=== PATIENT | male | born 1965 | race Caucasian/White ===

== ENCOUNTER 2018-09-04 09:24 | Emergency (ER) | payer BC ==
[2018-09-04 09:36] VITALS: BP 115/67
--- NOTE | 2018-09-04 09:53 | UC ---
Upper Extremity HPI - HPI Summary HPI Summary: fell on gym floor 4 eves ago, cut R elbow, did clean and dress wound and was doing well until last pm when elbow became red, swollen. Awoke in early am with fever, chills and increased swelling/redness/pain R elbow. feels a bit better after taking inbuprofen and Tylenol - History of Current Complaint Chief Complaint: UCUpperExtremity Stated Complaint: ELBOW INJURY Time Seen by Provider: 09/04/18 09:46 Hx Obtained From: Patient Onset/Duration: Sudden Onset Severity Initially: Moderate Severity Currently: Moderate Pain Intensity: 4 Location Of Pain: Is Discrete @ Character: Sharp, Stiffness Aggravating Factor(s): Movement, Other - pressure Alleviating Factor(s): Nothing Associated Signs And Symptoms: Positive: Swelling, Redness, Fever, Other - chills, draining - Allergies/Home Medications Allergies/Adverse Reactions: Allergies Allergy/AdvReac Type Severity Reaction Status Date / Time CLOROX Allergy ITCHINESS Uncoded 09/04/18 09:35 Home Medications: Home Medications ValACYclovir (*) [Valtrex 1 GM(*)] 1 gm PO DAILY 09/04/18 [History Confirmed ] PMH/Surg Hx/FS Hx/Imm Hx Previously Healthy: Yes - Surgical History Surgical History: Yes Surgery Procedure, Year, and Place: rt knee acl repair - [facility]. foreign body removed rt hand-AGE 14. 05/2014 SUBLUXED ELBOW REDUCED- [facility]- ER - Family History Known Family History: Positive: None Negative: Hypertension, Diabetes - Social History Occupation: Employed Full-time Lives: With Family Alcohol Use: Daily Alcohol Amount: 1 BEER PER DAY Substance Use Type: None Smoking Status (MU): Never Smoked Tobacco Review of Systems All Other Systems Reviewed And Are Negative: Yes Constitutional: Positive: Fever, Chills Skin: Negative: Rash Respiratory: Positive: Negative Cardiovascular: Positive: Negative Musculoskeletal: Positive: Decreased ROM - R elbow Neurological: Positive: Negative Psychological: Positive: Negative Physical Exam Triage Information Reviewed: Yes Appearance: Well-Appearing, No Pain Distress, Well-Nourished Vital Signs: Initial Vital Signs Temp 100.1 F 09/04/18 09:32 Pulse 69 09/04/18 09:32 Resp 18 09/04/18 09:32 BP 115/67 09/04/18 09:32 Pulse Ox 97 09/04/18 09:32 Vital Signs Reviewed: Yes Respiratory Exam: Normal Respiratory: Positive: Lungs clear Cardiovascular Exam: Normal Cardiovascular: Positive: RRR Musculoskeletal: Positive: Other: - R elbow swollen, fluctuant, redness, small PW with small amount serosanguinous drainage, demonstrates good ROM with pain on full ext Neurological Exam: Normal Psychological Exam: Normal Diagnostics - Radiology No standard instances Radiology Interpretation Completed By: Radiologist - No fracture, soft tissue swelling Upper Extremity Course/Dx - Course Course Of Treatment: case discussed with Dr. Reyna, he also examined patient in exam room spoke with Dr. Nguyen via phon et discuss case. She would like pt to receive Rocephin here, start augmentin and see her tomorrow at 8am in her office - Differential Dx/Diagnosis Differential Diagnosis/HQI/PQRI: Bursitis, Osteomyelitis, Other - soft tissue infection Provider Diagnosis: Cellulitis, Elbow contusion Discharge - Sign-Out/Discharge Documenting (check all that apply): Patient Departure All imaging exams completed and their final reports reviewed: Yes - Discharge Plan Condition: Stable Disposition: HOME Prescriptions: Amoxicillin/Clavulanate TAB* [Augmentin TAB 875*] 875 mg PO BID #20 tab Patient Education Materials: Cellulitis (ED) Referrals: Jana Nguyen MD [Medical Doctor] - (report to Dr. Nguyen's office at 8am tomorrow morning (09/05/18)) Alina Haddad MD [Primary Care Provider] - Additional Instructions: keep elbow clean and dry change bandage if soiled start augmentin antibiotic today Continue ibuprofen 600mg every 6 hours and Tylenol 650mg every 4-6 hours as needed for pain and fever report to Dr. Nguyen's office (orthopedic) tomorrow 09/05/18 at 8am to be seen by her [address] [place] [address] [place] [address] If at any time your fever or chills, swelling or pain increases you are to report to the Emergency room - Billing Disposition and Condition Condition: STABLE Disposition: Home
[2018-09-04] MEDS ORDERED: cefTRIAXone VIAL(*) 1,000 MG VIAL IM ONE (10:28)
[2018-09-04] MEDS ORDERED: Lidocaine 1%* 5 ML VIAL INJ ONE (10:29)
== END 2018-09-04 11:03 | disposition home or self-care (01) ==
LOC: UCEAST 09:24
DX: S50.01XA Contusion of right elbow, initial encounter (principal); L03.113 Cellulitis of right upper limb; Z91.048 Other nonmedicinal substance allergy status; W18.30XA Fall on same level, unspecified, initial encounter; Y92.39 Other specified sports and athletic area as the place of occurrence of the external cause
CPT/HCPCS: 96372; 99212; G0463; J0696

== ENCOUNTER 2018-09-05 09:51 | Inpatient (IN) | payer BC ==
[2018-09-05] MEDS ORDERED: Magnesium Hydroxide LIQ* 30 ML UDC PO PRN (10:22)
[2018-09-05] MEDS ORDERED: Polyethylene Glycol 3350* 17 GM PACKET PO PRN (10:22)
[2018-09-05] MEDS ORDERED: Ondansetron TAB* 4 MG PO PRN (10:22)
[2018-09-05] MEDS ORDERED: Morphine INJ* 2 MG/ML 1 ML SYRINGE (TWO MG - NEW SYRINGE VERSION) IV PRN (10:22)
[2018-09-05] MEDS ORDERED: oxyCODONE/Acetamin 5/325 MG* TAB PO PRN (10:22)
[2018-09-05] MEDS ORDERED: Ondansetron INJ* 2 MG/ML VIAL IV PRN (10:22)
[2018-09-05] MEDS ORDERED: Bisacodyl SUPP* 10 MG SUPP PR PRN (10:22)
[2018-09-05] MEDS ORDERED: diPHENhydraMINE IV* 50 MG/ML 1 ml VIAL (BENADRYL) IV PRN (10:22)
[2018-09-05] MEDS ORDERED: Piperacillin/Tazobac ADVAN(*) 3.375 GM in NS 0.9% 100 ML* 100 ML IVPB ONE (10:28)
--- NOTE | 2018-09-05 10:32 | HP ---
HISTORY AND PHYSICAL: DATE OF ADMISSION: 09/05/18 SURGEON: Jana Nguyen MD.* (DICTATED BY DELORES SERRANO) PRINCIPAL DIAGNOSIS: Infected right elbow olecranon bursitis. HISTORY OF PRESENT ILLNESS: Mr. Nieves is a 53-year-old gentleman who was playing [employer] back on 09/01/18 he dove to catch the frisbee and cut his right elbow. Two days later he woke up with chills, pain, and redness in the right elbow and went to [facility] yesterday on 09/04/18. He was started on Augmentin. He has taken 3 doses. He does report temperature of 100.1 this morning and continues to have pain, significant swelling, and redness of the right elbow. PAST MEDICAL HISTORY: Denies. PAST SURGICAL HISTORY: ACL repair. CURRENT MEDICATIONS: 1. Valacyclovir 2. Tylenol 3. Advil. 4. Augmentin ALLERGIES: No known drug allergies. FAMILY HISTORY: Coronary artery disease. SOCIAL HISTORY: A 53-year-old gentleman. He does not smoke. PHYSICAL EXAMINATION GENERAL: He is well developed, well nourished in no acute distress. VITAL SIGNS: He stands 6 feet tall. He is 185 pounds. Temp is 97.6 in the office. HEENT: Normocephalic, atraumatic. NECK: Supple. No palpable lymph nodes. PULMONARY: Lungs are clear to auscultation bilaterally. CARDIO: Regular rate and rhythm. Strong S1 and S2. ABDOMEN: Soft, nontender, nondistended. NEUROLOGIC: Alert and oriented x3. MUSCULOSKELETAL: Right upper extremity, there is an abrasion over the right elbow, no active drainage. There is significant erythema of the right elbow and surrounding soft tissue with significant swelling. He does have full extension and flexion of the right elbow and is able to supinate and pronate without pain. He has a 2+ distal radius pulse and intact sensation. ASSESSMENT AND PLAN: Mr. Nieves is a 53-year-old gentleman with an infected right elbow olecranon bursitis. We have sent him over from our office for a direct admission. We placed him on IV vanco and Zosyn. He will be kept n.p.o. after midnight. We will recheck the elbow in the morning if there is no significant improvement Dr. Nguyen will likely take him to the operating room for an I and D of the right elbow. DELORES SERRANO [id number]/[facility] #: [id number] [place]
--- OUTSIDE RECORDS SUMMARY | 2018-09-05 10:34 | XMS REPORT | Continuity of Care Document ---
:1965 External Reference #:[id number] Author Name Porfirio Moreau Care Team Providers Name Role Phone Franklin Rosales MD Primary Care Physician Unavailable Payers Date Identification Numbers Payment Provider Subscriber Policy Number: [id number] Leonel Katie Amari PayID: [id number] [address] [address] [place] [address] Advance Directives Description No Information Available Problems Date Description Provider Status Onset: 09/05/2018 Cellulitis of elbow Jana Nguyen M.D. Active Onset: 09/05/2018 Olecranon bursitis Jana Nguyen M.D. 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 ETOH Use Occasionally consumes alcohol Tobacco Use Start: Unknown Patient has never smoked Smoking Status Reviewed: 09/05/18 Patient has never smoked Exercise Type/Frequency Exercises rarely Allergies, Adverse Reactions, Alerts Description No Known Drug Allergies Medications Medication Date Status Form Strength Qnty SIG Indications Ordering Provider Tylenol Active Unknown 00 Advil Active Unknown 00 Flonase Active Unknown 00 Amoxicillin Active Tablets 500mg 1 by Unknown 00 mouth three times a day x 10 days Valacyclovir HCL Active Tablets 1gm 1 by Unknown 00 mouth every day Percocet Hx Unknown - 06/14/19 19 Naproxen Hx Unknown 06/14/19 19 Immunizations Description No Information Available Vital Signs Date Vital Result Comment 09/05/2018 9:08am Height 72 inches 6'0" Weight 185.00 lb Heart Rate 63 /min Body Temperature 97.6 F O2 % BldC Oximetry 93 % BMI (Body Mass Index) 25.1 kg/m2 06/26/2014 1:29pm Height 73 inches 6'1" Weight 195.00 lb Pain Level 0 BMI (Body Mass Index) 25.7 kg/m2 06/04/2014 10:00am Height 73 inches 6'1" Weight 195.00 lb Heart Rate 56 /min BP Systolic 108 mmHg BP Diastolic 65 mmHg BMI (Body Mass Index) 25.7 kg/m2 Results Description No Information Available Procedures Date Code Description Status 05/18/2017 92631910 Colonoscopy Completed 05/06/2015 33743 Repair Hernia Umbilical > 5 Yrs, Reducible Completed 06/04/2014 37113 [place] Closed Elbow Dislocation,W/O Anesthesia Completed 02/13/2010 30278 Short Arm Splint Application Completed Encounters Type Date Location Provider Dx Diagnosis Office Visit 02/13/2010 [facility], 813.82 FX Ulna (Alone) 3:15[facility] Unspec Part Closed Plan of Treatment 09/05/2018 - Jana Nguyen M.D.M25.521 Pain in right elbowFollow up:Follow up[place] [facility] [place] Ole[place]ranon [place], right [id number] Cellulitis of right upper limb
[2018-09-05] MEDS ORDERED: Vancomycin(*) 1,000 MG in NS 0.9% 250 ML* 250 ML IVPB SCH (11:00)
[2018-09-05] MEDS ORDERED: Zosyn per Pharmacy* NOTE FOLLOW UP SCH (11:00)
[2018-09-05] MEDS ORDERED: Lactated Ringers 1000 ML Bag* 1,000 ML IV SCH (11:00)
[2018-09-05] MEDS ORDERED: Vancomycin per Pharmacy* NOTE FOLLOW UP SCH (11:00)
[2018-09-05 11:11] LABS: ABS Basophils 0 10^3/ul (0-0.2); ABS Eosinophils 0.1 10^3/ul (0-0.6); ABS Lymphocytes 1.6 10^3/ul (1.0-4.8); ABS Monocytes 0.7 10^3/ul (0-0.8); ABS Neutrophils 5.6 10^3/ul (1.5-7.7); ABS Nucleated RBC 0 10^3/ul; Eosinophil % 1.1 %; Hematocrit 43 % (36-46); Hemoglobin 14.5 g/dL (14.0-18.0); Lymphocyte % 19.7 %; Mean Corpuscular HGB Conc 34 g/dL (31-36); Mean Corpuscular Hemoglobin 31 pg (27-31); Mean Corpuscular Volume 91 fL (80-94); Mean Platelet Volume 10.3 fL (7.4-10.4); Nucleated Red Blood Cells % 0.1; Platelet Count 125 10^3/uL (150-450); Red Blood Count 4.71 10^6 /uL (4.18-5.48); Red Cell Distribution Width 13 % (10.5-15)
[2018-09-05] MEDS ORDERED: Vancomycin 1500 MG IV - x ONCE IVPB ONE ×2 (12:30)
--- NOTE | 2018-09-05 14:02 | CONS ---
CONSULTATION REPORT: DATE OF CONSULT: 09/05/18 REQUESTING PHYSICIAN: Dr. Nguyen. CONSULTING SERVICE: Infectious Disease. REASON FOR CONSULT: Septic olecranon bursitis, right. IMPRESSION: 1. Right septic olecranon bursitis with cellulitis, usually gram positive. 2. He believes his tetanus status is up to date. RECOMMENDATIONS: Vancomycin goal trough 10-15. We will follow his arm and he will call his primary doctor's office to find out when his last tetanus shot was. HISTORY OF PRESENT ILLNESS: This is a 53-year-old man who was playing [employer] last week and fell on his right elbow, developed a small wound there at that time. It became red, swollen, he developed a fever. He went to urgent care. He was started on Augmentin yesterday after a dose of ceftriaxone. He has had no fevers since then and the redness is down a little bit. He saw Dr. Nguyen, who is concerned about the drainage, so had him come into the hospital. He does not have pain with range of motion of the elbow. He has some pain at rest, a little bit of bloody purulent drainage from time to time over the last day he thinks. He is not allergic to antibiotics. PAST MEDICAL HISTORY: 1. Finger infection, requiring incision and debridement. 2. Status post ACL repair. MEDICATIONS: 1. Tylenol. 2. Heparin subcutaneous injection. 3. Docusate. 4. Lactulose as needed. 5. Morphine as needed. 6. Zofran as needed. 7. Vancomycin. ALLERGIES: No known drug allergies. FAMILY HISTORY: No current infections. SOCIAL HISTORY: Lives in [place], nonsmoker. REVIEW OF SYSTEMS: All negative except as noted above in history of present illness. PHYSICAL EXAM: Vital Signs: Temperature is 37, heart rate 80, respiratory rate 12, oxygen saturation 97% on room air. General: He is awake, not in distress. Neurologic: He is oriented x3, follows all commands. HEENT: There is no conjunctival hemorrhage. Oropharynx without lesions. Neck: Neck is supple without mass. Heart: Regular rate and rhythm without murmurs, rubs or gallops. Lungs: Clear to auscultation bilateral. Abdomen: Soft, nontender, and nondistended. There is bowel sounds present. Skin: There is no rash or splinter hemorrhage. Musculoskeletal: Right lateral elbow, there is edema, erythema, fluctuance, a 3 mm wound with some serosanguineous drainage. No expressive pus. No crepitus. DIAGNOSTIC STUDIES/LAB DATA: Pending. Please see impression and recommendations outlined above. Thank you for asking me to see Mr. Nieves in consultation. [id number]/[facility] #: [id number] MTDD
[2018-09-05 14:29] LABS: Activated Partial Thrombo Time 30.6 seconds (26.0-36.3); INR 0.94 (0.77-1.02)
[2018-09-05 14:31] LABS: EGFR African American 80.7 (>60); EGFR Non-African American 66.7 (>60)
[2018-09-05] MEDS: Heparin VIAL(*) 5000 UNITS/ML VIAL (FIVE THOUSAND) SUBCUT SCH ×2 (14:48→22:55)
[2018-09-05] MEDS: Acetaminophen TAB* 325 MG PO SCH ×2 (14:50→21:34)
[2018-09-05] MEDS: Vancomycin(*) 1,000 MG in NS 0.9% 250 ML* 250 ML IVPB SCH (19:47)
[2018-09-05] MEDS: Magnesium Hydroxide LIQ* 30 ML UDC PO SCH (19:50)
[2018-09-05] MEDS: Docusate CAP* 100 MG PO SCH (19:50)
[2018-09-06] MEDS: Vancomycin(*) 1,000 MG in NS 0.9% 250 ML* 250 ML IVPB SCH ×3 (03:54→20:09)
[2018-09-06] MEDS: Acetaminophen TAB* 325 MG PO SCH ×3 (05:18→21:37)
[2018-09-06 05:43] LABS: Hematocrit 41 % (36-46); Hemoglobin 13.9 g/dL (14.0-18.0); Mean Platelet Volume 10.8 fL (7.4-10.4); Platelet Count 123 10^3/uL (150-450)
[2018-09-06 06:07] LABS: BUN/Creatinine Ratio 17.8 (8-20); Calcium 8.7 mg/dL (8.6-10.3); EGFR African American 92.8 (>60); EGFR Non-African American 76.7 (>60); Potassium 3.9 mmol/L (3.5-5.0)
[2018-09-06] MEDS: Magnesium Hydroxide LIQ* 30 ML UDC PO SCH ×2 (08:37→20:34)
[2018-09-06] MEDS: Docusate CAP* 100 MG PO SCH ×2 (08:37→20:34)
--- NOTE | 2018-09-06 08:52 | PN ---
Progress Note - Progress Note Date of Service: 09/06/18 SOAP: Subjective: [Pt is a 53 y/o male who was seen this am laying in bed. He states that he is doing much better and feels that the redness around his elbow has receded significantly. He denies any fevers. He states that he did have some sweating last night. Denies any chest pain, sob, nausea or vomiting. ] Objective: [General: Pt is alert and oriented x3. NAD. Appropriate mood, affect, dress and hygiene. MSK, RU: Elbow has posterior swelling with a small scab preset in the center. There is no drainage or purulence present. Erythema is present just over the area of swelling. The erythema is not present up the posterior aspect of the upper arm or down the ulnar aspect of the forearm. Swelling is moderate. Sensation is intact distally with a 2 + radial pulse. He has full extension to 0 and flexion to 140 without pain. ] Vital Signs Temp 99.4 F 09/06/18 07:42 Pulse 59 09/06/18 07:42 Resp 18 09/06/18 08:00 BP 104/57 09/06/18 07:42 Pulse Ox 95 09/06/18 07:42 Intake & Output 09/05/18 09/06/18 09/06/18 18:59 06:59 18:59 Intake Total 610 1095 Output Total 0 0 Balance 610 1095 0 Weight 185 lb Intake: IV Fluids 260 595 ABX - VANCOMYCIN 260 545 NS (0.9%) 50 Oral 350 500 Output: Urine 0 0 Other: Estimated Void Medium # Voids 3 Assessment: [Right infected olecranon bursitis] Plan: [- Continue with current abx - vancomycin - We will continue to monitor the area of erythema and the swelling - Continue to move the elbow ]
[2018-09-06] MEDS ORDERED: Vancomycin Trough Check NOTE FOLLOW UP ONE (11:30)
[2018-09-06] MEDS: Heparin VIAL(*) 5000 UNITS/ML VIAL (FIVE THOUSAND) SUBCUT SCH ×2 (11:30→20:34)
[2018-09-06 11:42] LABS: Activated Partial Thrombo Time 32.4 seconds (26.0-36.3); INR 0.94 (0.77-1.02)
[2018-09-06 12:09] LABS: ABS Basophils 0 10^3/ul (0-0.2); ABS Eosinophils 0.1 10^3/ul (0-0.6); ABS Lymphocytes 1.3 10^3/ul (1.0-4.8); ABS Monocytes 0.5 10^3/ul (0-0.8); ABS Neutrophils 4.4 10^3/ul (1.5-7.7); ABS Nucleated RBC 0 10^3/ul; Eosinophil % 1.3 %; Hematocrit 45 % (36-46); Lymphocyte % 20.8 %; Mean Corpuscular HGB Conc 33 g/dL (31-36); Mean Corpuscular Hemoglobin 31 pg (27-31); Mean Corpuscular Volume 92 fL (80-94); Mean Platelet Volume 10.6 fL (7.4-10.4); Nucleated Red Blood Cells % 0.1; Platelet Count 140 10^3/uL (150-450); Red Blood Count 4.91 10^6 /uL (4.18-5.48); Red Cell Distribution Width 13 % (10.5-15); White Blood Count 6.3 10^3/uL (3.5-10.8)
[2018-09-07] MEDS: Vancomycin(*) 1,000 MG in NS 0.9% 250 ML* 250 ML IVPB SCH (04:16)
[2018-09-07] MEDS: Acetaminophen TAB* 325 MG PO SCH (05:23)
[2018-09-07 07:20] LABS: Hematocrit 41 % (36-46); Hemoglobin 13.9 g/dL (14.0-18.0); Mean Platelet Volume 9.9 fL (7.4-10.4); Platelet Count 141 10^3/uL (150-450)
[2018-09-07] MEDS: Magnesium Hydroxide LIQ* 30 ML UDC PO SCH (07:30)
[2018-09-07] MEDS: Docusate CAP* 100 MG PO SCH (07:30)
[2018-09-07 07:37] VITALS: BP 93/62
--- NOTE | 2018-09-07 10:10 | PN ---
Progress Note - Progress Note Date of Service: 09/07/18 SOAP: Subjective: []Pt seen at bedside. He has been receiving IV vanco for treatment of infected olecranon bursitis. He feels well, pain of the right elbow has resolved, he denies fever, chills, CP, SOB, dizziness, nausea. Objective: []General: Appears well, NAD, packing his belongings ready to go home RUE: Mild erythema and moderate swelling over the olecranon, improved from yesterday, no erythema of upper arm or forearm. Edematous area has a pea sized scab without drainage. Sensation intact to light touch throughout RUE, radial pulse 2+. ROM elbow 0-140 without pain. Assessment: []right infected olecranon bursitis Plan: []WBAT, ROM as tolerated Keep the elbow covered with sterile gauze and guerline wrap until completely healed over DC to home on keflex 500 mg po TID x 21 days Follow up with Dr Nguyen next week, call ortho sooner with concerns Vital Signs Temp 98.5 F 09/07/18 07:32 Pulse 52 09/07/18 07:32 Resp 15 09/07/18 07:46 BP 93/62 09/07/18 07:32 Pulse Ox 99 09/07/18 07:30 Intake & Output 09/06/18 09/07/18 09/07/18 18:59 06:59 18:59 Intake Total 460 1620 Output Total 500 Balance -40 1620 Intake: IV Fluids 0 620 ABX - VANCOMYCIN 560 NS (0.9%) 0 60 Oral 460 1000 Output: Urine 500 Other: Estimated Void Medium Date of Last Bowel 09/06/2018 Movement # Bowel Movements 0 1 Estimated Stool Amount Medium # Voids 1 1 Laboratory Last Values WBC 6.3 10^3/uL (3.5-10.8) 09/06/18 11:18 RBC 4.91 10^6 /uL (4.18-5.48) 09/06/18 11:18 Hgb 13.9 g/dL (14.0-18.0) L 09/07/18 06:59 Hct 41 % (36-46) 09/07/18 06:59 MCV 92 fL (80-94) 09/06/18 11:18 MCH 31 pg (27-31) 09/06/18 11:18 MCHC 33 g/dL (31-36) 09/06/18 11:18 RDW 13 % (10.5-15) 09/06/18 11:18 Plt Count 141 10^3/uL (150-450) L 09/07/18 06:59 MPV 9.9 fL (7.4-10.4) 09/07/18 06:59 Neut % (Auto) 69.5 % 09/06/18 11:18 Lymph % (Auto) 20.8 % 09/06/18 11:18 Wells % (Auto) 8.1 % 09/06/18 11:18 Eos % (Auto) 1.3 % 09/06/18 11:18 Baso % (Auto) 0.3 % 09/06/18 11:18 Absolute Neuts (auto) 4.4 10^3/ul (1.5-7.7) 09/06/18 11:18 Absolute Lymphs (auto) 1.3 10^3/ul (1.0-4.8) 09/06/18 11:18 Absolute Monos (auto) 0.5 10^3/ul (0-0.8) 09/06/18 11:18 Absolute Eos (auto) 0.1 10^3/ul (0-0.6) 09/06/18 11:18 Absolute Basos (auto) 0 10^3/ul (0-0.2) 09/06/18 11:18 Absolute Nucleated RBC 0 10^3/ul 09/06/18 11:18 Nucleated RBC % 0.1 09/06/18 11:18 INR (Anticoag Therapy) 0.94 (0.77-1.02) 09/06/18 11:18 APTT 32.4 seconds (26.0-36.3) 09/06/18 11:18 Sodium 141 mmol/L (135-145) 09/06/18 05:09 Potassium 3.9 mmol/L (3.5-5.0) 09/06/18 05:09 Chloride 110 mmol/L (101-111) 09/06/18 05:09 Carbon Dioxide 24 mmol/L (22-32) 09/06/18 05:09 Anion Gap 7 mmol/L (2-11) 09/06/18 05:09 BUN 18 mg/dL (6-24) 09/06/18 05:09 Creatinine 1.01 mg/dL (0.67-1.17) 09/06/18 05:09 Est GFR ( Amer) 92.8 (>60) 09/06/18 05:09 Est GFR (Non-Af Amer) 76.7 (>60) 09/06/18 05:09 BUN/Creatinine Ratio 17.8 (8-20) 09/06/18 05:09 Glucose 95 mg/dL (70-100) 09/06/18 05:09 Calcium 8.7 mg/dL (8.6-10.3) 09/06/18 05:09 Vancomycin Trough 13.0 mcg/mL 09/06/18 11:18
--- NOTE | 2018-09-07 22:55 | DS ---
CC: Dr. Jana Nguyen* DISCHARGE SUMMARY: DATE OF ADMISSION: 09/05/18 DATE OF DISCHARGE: 09/07/18 PROVIDER: Dr. Jana Nguyen* (dictated by DELORES Landers). HISTORY OF PRESENT ILLNESS: Mr. Nieves is a 53-year-old gentleman who was playing [employer] on 09/01/18. He dove to catch the frisbee and cut his right elbow. Two days later, he woke up with chills, pain and redness to the right elbow, and went to [facility] on 09/04/18. He was started on Augmentin; he has taken 3 doses. He report temperature of 100.1 along with pain, significant swelling, and redness of the right elbow. He was seen By Dr Nguyen and sent for admission. HOSPITAL COURSE: The patient was admitted to [facility] on 09/05/18 for an infected right elbow olecranon bursitis. He was stared on vancomycin. Infectious Disease was consulted. While on IV vancomycin, the erythema and redness were improving. Microbiology did show Staph. aureus. On 09/07/18, he was deemed to be stable for discharge home on Keflex 500 mg p.o. t.i.d. for 21 days as per infectious disease, Dr. Taveras. DISCHARGE MEDICATIONS: 1. Ibuprofen 400 mg p.o. q. 8 hours p.r.n. 2. Acetaminophen 500 mg 2 tabs p.o. daily p.r.n. 3. Valtrex 1 g daily. 4. Stop Augmentin. 5. Start Keflex 500 mg p.o. t.i.d. for 21 days. 6. Docusate 100 mg p.o. b.i.d. p.r.n. for constipation. 7. Acetaminophen 975 mg p.o. q.8 hours p.r.n. DISCHARGE PLAN: The patient will be weightbearing as tolerated, range of motion as tolerated, keep elbow covered with sterile gauze and Jasiel wrap until completely healed over, Keflex 500 mg by mouth every 8 hours for 21 days. If you have fever, chills, increased redness, or drainage, call the orthopedic office right away. Follow up with Dr. Nguyen in 1 to 2 weeks or sooner if there are any concerns. DISCHARGE DISPOSITION: He is in stable condition at the time of discharge. DELORES ABAD [id number]/[facility] #: [id number] [facility] HOSPITALIliana
== END 2018-09-07 10:00 | disposition home or self-care (01) | DRG 351 ==
LOC: OBSVTOIN 10:31 → SSU 10:31
PROVIDERS: ADMIT Orthopaedic Surgery Adult Reconstructive Orthopaedic Surgery; ATTEND Orthopaedic Surgery Adult Reconstructive Orthopaedic Surgery
DX: M71.121 Other infective bursitis, right elbow (principal); B95.61 Methicillin susceptible Staphylococcus aureus infection as the cause of diseases classified elsewhere; Z82.49 Family history of ischemic heart disease and other diseases of the circulatory system
CPT/HCPCS: 36415; 80048; 80202; 82565; 84520; 85014; 85018; 85025; 85049; 85610; 85730; 87040; 87070; 87077; 87186; 87205; 87640; 87641; A9270-GY; J1644; J3370

== ENCOUNTER 2018-10-06 20:31 | Emergency (ER) | payer BC ==
--- OUTSIDE RECORDS SUMMARY | 2018-10-06 20:36 | XMS REPORT | Continuity of Care Document ---
:1965 External Reference #:[id number] Author Name Emily Godinez Care Team Providers Name Role Phone Franklin Rosales MD Primary Care Physician Unavailable Payers Date Identification Numbers Payment Provider Subscriber Effective: 2018 Policy Number: [id number] [facility] Monica Fitzpatrick Group Number: [id number] [address] PayID: [id number] [address] [address] Expires: 2018 Policy Number: [id number] [employer] Monica Fitzpatrick PayID: [id number] [address] [address] Advance Directives Description No Information Available Problems Date Description Provider Status Onset: 09/05/2018 Cellulitis of elbow Jana Nguyen M.D. Active Onset: 09/05/2018 Olecranon bursitis Jana Nguyen M.D. 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 Use Occasionally consumes alcohol Tobacco Use Start: Unknown Patient has never smoked Smoking Status Reviewed: 09/19/18 Patient has never smoked Exercise Type/Frequency Exercises rarely Allergies, Adverse Reactions, Alerts Description No Known Drug Allergies Medications Medication Date Status Form Strength Qnty SIG Indications Ordering Provider Tylenol Active Unknown 00 Advil Active Unknown 00 Flonase Active Unknown 00 Valacyclovir HCL Active Tablets 1gm 1 by Unknown 00 mouth every day Keflex Active Unknown 00 Percocet Hx Unknown 06/14/19 19 Naproxen Hx Unknown 06/14/19 19 Amoxicillin Hx Tablets 500mg 1 by Unknown 00 - mouth 09/19/19 three 19 times a day x 10 days Immunizations Description No Information Available Vital Signs Date Vital Result Comment 09/19/2018 10:30am Height 72 inches 6'0" Weight 185.00 lb BP Systolic 100 mmHg BP Diastolic 64 mmHg Body Temperature 97.5 F Pain Level 0 BMI (Body Mass Index) 25.1 kg/m2 09/05/2018 9:08am Height 72 inches 6'0" Weight [...] Available Procedures Date Code Description Status 05/18/2017 [id number] Colonoscopy Completed 05/06/2015 27936 Repair Hernia Umbilical > 5 Yrs, Reducible Completed 06/04/2014 02486 [place] Closed Elbow Dislocation,W/O Anesthesia Completed 02/13/2010 93661 Short Arm Splint Application Completed Encounters Type Date Location Provider Dx Diagnosis Office Visit 09/05/2018 Orthopedic Jana Nguyen, M25.521 Pain in right 8:[facility] elbow M70.21 Olecranon bursitis, right elbow L03.113 Cellulitis of right upper limb Office Visit 02/13/2010 3:15p [facility] Del[facility], 813.82 FX Ulna [facility] (Alone) Unspec Part Closed Plan of Treatment Future Appointment(s):10/07/2018 11:15 am - Jana [facility] - Jana Nguyen M.D.M70.21 Olecranon bursitis, right elbowFollow up:Follow up: 2 [id number] Cellulitis of right upper limb
[2018-10-06 20:41] VITALS: BP 116/61
[2018-10-06] MEDS ORDERED: Lidocaine 2% W/EPI 1:100,000* 20 ML MDV INJ ONE (20:51)
[2018-10-06] MEDS ORDERED: Lidocaine 1%* 5 ML VIAL INJ ONE (21:16)
[2018-10-06] MEDS ORDERED: cefTRIAXone VIAL(*) 1,000 MG VIAL IM ONE (21:16)
--- NOTE | 2018-10-06 21:17 | UC ---
Elbow Pain - HPI Summary HPI Summary: 53 yo male with ,8 hour hx of f/c and right elbow pain admitted in August for septic olecraon bursitis one week ago finished a three week coarse of keflex no n/v/d - History of Current Complaint Chief Complaint: UCUpperExtremity Stated Complaint: ELBOW PAIN, AND FEVER Time Seen by Provider: 10/06/18 20:32 Hx Obtained From: Patient Onset/Duration: Hours Severity Initially: Mild Severity Currently: Mild Pain Intensity: 1 Pain Scale Used: 0-10 Numeric Location Of Pain: Is Diffuse Character: Dull, Aching Aggravating Factor(s): Other - touch Alleviating Factor(s): Rest Associated Signs And Symptoms: Positive: Swelling, Redness Body - Head: 1 - red/swollen - Allergies/Home Medications Allergies/Adverse Reactions: Allergies Allergy/AdvReac Type Severity Reaction Status Date / Time No Known Drug Allergies Allergy See Comment Verified 10/06/18 20:43 sodium hypochlorite solution Allergy Itching Verified 10/06/18 20:43 PMH/Surg Hx/FS Hx/Imm Hx Previously Healthy: Yes - Surgical History Surgical History: Yes Surgery Procedure, Year, and Place: rt knee acl repair - [facility]. foreign body removed rt hand-AGE 14. 05/2014 SUBLUXED ELBOW REDUCED- [facility]- ER - Family History Known Family History: Positive: None Negative: Hypertension, Diabetes - Social History Alcohol Use: Weekly Alcohol Amount: 1 BEER PER DAY Substance Use Type: None Smoking Status (MU): Never Smoked Tobacco - Immunization History Most Recent Influenza Vaccination: fall 2017 Most Recent Pneumonia Vaccination: none Review of Systems All Other Systems Reviewed And Are Negative: Yes Constitutional: Positive: Fever, Chills Skin: Positive: Negative Eyes: Positive: Negative ENT: Positive: Negative Respiratory: Positive: Negative Cardiovascular: Positive: Negative Gastrointestinal: Positive: Negative Genitourinary: Positive: Negative Motor: Positive: Negative Neurovascular: Positive: Negative Musculoskeletal: Positive: Arthralgia, Edema Neurological: Positive: Negative Psychological: Positive: Negative Physical Exam Triage Information Reviewed: Yes Appearance: Well-Appearing, No Pain Distress, Well-Nourished Vital Signs: Initial Vital Signs Temp 101.9 F 10/06/18 20:35 Pulse 71 10/06/18 20:35 Resp 16 10/06/18 20:35 BP 116/61 10/06/18 20:35 Pulse Ox 96 10/06/18 20:35 Vital Signs Reviewed: Yes Eyes: Positive: Conjunctiva Clear ENT: Positive: Hearing grossly normal. Negative: Nasal congestion, Nasal drainage, Trismus, Muffled voice, Hoarse voice Dental Exam: Normal Neck: Positive: Supple, Nontender, No Lymphadenopathy Respiratory: Positive: Lungs clear, Normal breath sounds, No respiratory distress, No accessory muscle use Cardiovascular: Positive: RRR, No Murmur Musculoskeletal: Positive: Edema @ - overlying right olecroan, able to fully extend, overlying cellulitis Neurological: Positive: Alert Psychological Exam: Normal Skin Exam: Other - see image Procedures - Procedure Summary Procedure Summary: ASPIRATION OF RIGHT OLECRANON BURSA prodedure explained TIME OUT sterile prep anesth with lido/epi 15 cc thin turbid fluid sterile dressing culture sent Elbow Pain Course/Dx - Course Course Of Treatment: one gram rocephin IM - Differential Dx/Diagnosis Provider Diagnosis: Septic olecranon bursitis of right elbow Discharge - Sign-Out/Discharge Documenting (check all that apply): Patient Departure All imaging exams completed and their final reports reviewed: No Studies - Discharge Plan Condition: Stable Disposition: HOME Patient Education Materials: Elbow Bursitis (ED) Referrals: Jana Nguyen MD [Medical Doctor] - (Try to get in to see her in AM) Additional Instructions: you had a shot of rocephin 15 cc of fluid removed from right olecranon bursa fluid sent for culture - Billing Disposition and Condition Condition: STABLE Disposition: Home
--- NOTE | 2018-10-09 12:47 | UC ---
- Progress Note Progress Note: Olecranon bursal fluid Gram stain: 4+ neutrophils, Body fluid culture preliminary report: Staph aureus 1+ He was given 1 g Rocephin and was recommended to follow up with Dr. Nguyen next day. RN to call the patient and confirm that he was seen by Dr. Nguyen. If not, recommend that he make an appointment with orthopedics and I will recommend starting him on oral antibiotics. I will prescribe Bactrim DS to the pharmacy. Course/Dx - Diagnoses Provider Diagnoses: Septic olecranon bursitis of right elbow Discharge - Sign-Out/Discharge Documenting (check all that apply): Post-Discharge Follow Up All imaging exams completed and their final reports reviewed: No Studies - Discharge Plan Condition: Stable Disposition: HOME Patient Education Materials: Elbow Bursitis (ED) Referrals: Jana Nguyen MD [Medical Doctor] - (Try to get in to see her in AM) Additional Instructions: you had a shot of rocephin 15 cc of fluid removed from right olecranon bursa fluid sent for culture - Billing Disposition and Condition Condition: STABLE Disposition: Home
== END 2018-10-06 21:55 | disposition home or self-care (01) ==
LOC: UCEAST 20:31
DX: M71.121 Other infective bursitis, right elbow (principal); B95.61 Methicillin susceptible Staphylococcus aureus infection as the cause of diseases classified elsewhere; Z91.048 Other nonmedicinal substance allergy status
CPT/HCPCS: 20605; 87070; 87077; 87186; 87205; 96372; 99212; G0463; J0696

== ENCOUNTER → 2018-11-03 05:37 | Day surgery (SDC) | payer BC ==
--- NOTE | 2018-10-26 09:02 | HP ---
Amended report to enter cosigning physician. HISTORY AND PHYSICAL: DATE OF SURGERY: 11/03/18 DATE OF OFFICE VISIT: 10/21/18 SURGEON: Jana Nguyen MD* (dictated by DELORES Serrano). PROCEDURE: Right open elbow bursectomy. CHIEF COMPLAINT: Right elbow pain. HISTORY OF PRESENT ILLNESS: Mr. Nieves is a 53-year-old gentleman with a history of infected right elbow bursa. He has been treated with IV antibiotics and p.o. antibiotics. He continues to have pain in the right elbow and an enlarged bursa. PAST MEDICAL HISTORY: Denies. PAST SURGICAL HISTORY: Left finger surgery, right knee ACL reconstruction, and hernia repair. CURRENT MEDICATIONS: 1. Tylenol as needed. 2. Advil as needed. 3. Valacyclovir 1 g daily. 4. Bactrim twice a day. ALLERGIES: No known drug allergies. FAMILY HISTORY: Coronary artery disease. SOCIAL HISTORY: He is a 53-year-old gentleman. He lives with his daughter. He does not smoke or use drugs. He uses occasional alcohol. REVIEW OF SYSTEMS: A complete 14-point review of systems was reviewed with the patient and was positive for some recent fevers associated with the elbow infection. He denies a history of DVT, PE, hepatitis, HIV, or anesthesia problems. PHYSICAL EXAMINATION GENERAL: He is well developed, well nourished, in no acute distress. VITAL SIGNS: He stands 6 feet 1 inch tall, weighs 190 pounds. Blood pressure is 100/54, heart rate 68. HEENT: Normocephalic, atraumatic. NECK: Supple. No palpable lymph nodes. PULMONARY: Lungs are clear to auscultation bilaterally. CARDIO: Regular rate and rhythm. Strong S1, S2. ABDOMEN: Soft, nontender, and nondistended. NEUROLOGIC: He is alert and oriented x3. MUSCULOSKELETAL: Right upper extremity: Skin is intact. There are no open wounds or abrasions. There is an enlarged bursa over the right elbow, which is tender to palpation. No significant erythema or warmth. No drainage. He is able to fully extend the elbow. He has a 2+ distal radius pulse, intact sensation, and he is distally neurovascularly intact. ASSESSMENT AND PLAN: Mr. Nieves is a 53-year-old gentleman with bursitis of his right elbow. He has elected to proceed with right open elbow bursectomy. The surgery is scheduled for 11/03/[address] Nguyen has discussed the risks and benefits of the surgery at today's visit and all of his questions were answered. He will follow up with Dr. Nguyen 2 weeks after the surgery. DELORES SERRANO [id number]/[facility] #: [id number] [place]
[~2018-11-03 05:37] MED LIST: Acetaminophen TAB* 325 MG PO PRN; Buffered Lidocaine 1% SYRIN* 1 ML/SYRINGE INTRADERM ONE; Bupivacaine 0.25% SDV PF* 10 ML VIAL INJ ONE; Dexamethasone IV* 4 MG/ML 1 ML (4 MG) ONE; DiMENhydriNATE IV* 50 MG/ML VIAL IV PUSH PRN; EPHEDrine (Pressors)* 50 MG/ML VIAL ONE; Ketorolac INJ* 30 MG/ML 1 ML VIAL ONE; Metoclopramide IV* 5 MG/ML 2 ML VIAL ONE; Midazolam* 1 MG/ML 2 ML VIAL (2 MG) ONE; Naloxone* 0.4 MG/ML 1 ML VIAL IV PRN; Ondansetron INJ* 2 MG/ML VIAL ONE; Succinylcholine* 20 MG/ML 10 ML VIAL ONE; ceFAZolin 2 GM PREMIX in ORs 2 GM/50 ML BAG IVPB ONE; fentaNYL* 50 MCG/ML 2 ML VIAL (100 MCG VIAL) IV PRN; fentaNYL* 50 MCG/ML 2 ML VIAL (100 MCG VIAL) ONE; oxyCODONE/Acetamin 5/325 MG* TAB ONE
[2018-11-03 11:19] VITALS: BP 107/67
--- NOTE | 2018-11-03 21:06 | OP ---
DATE OF OPERATION: 11/03/18 [facility] DATE OF : 61 ATTENDING SURGEON: Jana Nguyen MD. BACKEND DEVELOPER: DELORES Das. Ms. Denny did help throughout the procedure with preparation of the arm, wound retraction, and wound closure. ANESTHESIOLOGIST: Dr. Fitzgerald. ANESTHESIA: General. 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 OPERATIVE PROCEDURE: Open right olecranon bursectomy with irrigation and debridement of the open wound. TOURNIQUET TIME: 24 minutes. ESTIMATED BLOOD LOSS: 50 cc. COMPLICATIONS: None. SPECIMEN: Multiple culture swabs and the bursal tissue were sent for cultures and sensitivities as well as a portion of the bursa sent to Pathology. BRIEF HISTORY/INDICATION: Mr. Nieves is a 53-year-old right hand dominant male who injured his right elbow playing [employer] on 09/01/18. He obtained a laceration that then started to swell. He developed an infection along the olecranon bursa and was treated with p.o. antibiotics. When I saw him in the clinic on 09/05/18, he had extensive cellulitis of the upper extremity and I did directly admit him to the hospital for IV antibiotics. The patient was successfully treated with IV and p.o. antibiotics until his return to my clinic on 10/07/18. He developed increased pain and swelling along the olecranon bursa once again and did have significant erythema. At that time, the patient wished to schedule an elective olecranon bursectomy with irrigation and debridement. He was placed on Bactrim until the date of surgery. Because of work, he wished to wait until 11/03/18 to have the open bursectomy. Over the past few weeks, the patient's infection has been adequately controlled with the Bactrim and he feels that he has been steadily improving. The patient understood the risks of surgery included, but were not limited to, bleeding, infection, damage to nearby structures, continued pain, need for further surgery , recurrent bursitis, recurrent infection, wound healing problems, anesthesia complications, stroke, heart attack, blood clot, and . He did wish to proceed. Specifically the patient and I discussed that he had recurrent infection and swelling in this bursa and he did wish to proceed with surgery. He understood there would be a high risk of wound healing problems and continued infection. INTRAOPERATIVE FINDINGS: Intraoperatively, the patient was noted to have fibrotic scarred, chronically infected appearing soft tissue along the olecranon bursa and distal triceps tendon. There was significant degeneration along the lateral border of the triceps tendon which appear to be due to chronic infection here. DESCRIPTION OF PROCEDURE: Mr. Nieves was identified in the preanesthesia unit. His right upper extremity was marked as the correct operative site. Informed consent was signed and placed in the chart. The patient was taken to the operating room and placed under general anesthesia. Right upper extremity was prepped and draped in the usual sterile fashion. Preop time-out was made to correctly identify the patient, side, and site. Appropriate perioperative antibiotics were given within 1 hour of incision. Tourniquet was inflated. A curved incision around the olecranon was made with a 10- blade and carried down through the skin. Tenotomies were used to dissect around the bursa which was immediately visible. The bursa was inflamed and chronically fibrotic. The bursa measured about 5 x 3 cm. This bursa was carefully excised using tenotomies. Curette was used to remove any remaining fibrotic appearing tissue. A rongeur was used to remove any infected appearing tissue. The elbow was then copiously irrigated with 1 L of sterile saline. At this time, it was noted that there was some chronic degeneration of the lateral portion of the distal triceps tendon. This area was carefully debrided. #5 Ethibond were used to repair the edge of the triceps tendon to the fascia to improve integrity. The lateral skin was ellipsed in order to have less redundant tissue with closure. #1 Vicryl were used to close the deeper layers, 2-0 Vicryl were used to close the subcutaneous layers, running nylon stitch was used to close the skin. The patient's wound was covered with Xeroform, 4x4s, and Webril. A long plaster posterior splint was applied with the elbow in about 20 degrees of flexion. The patient's anesthesia was reversed without difficulty. He was taken to the PACU in stable condition. Intended weight- bearing will be nonweightbearing right upper extremity. He will follow up in my clinic in 1 week's time for a splint change. [id number]/[facility] #: [id number] MTDD
== END | disposition home or self-care (01) ==
LOC: OR 05:37
PROVIDERS: ATTEND Orthopaedic Surgery Adult Reconstructive Orthopaedic Surgery
DX: M71.121 Other infective bursitis, right elbow (principal)
CPT/HCPCS: 87070; 87073; 87205; 88304; A9270-GY; J0330; J0690; J1100; J1885; J2250; J2405; J2765; J3010; J3490

== ENCOUNTER 2019-04-29 20:28 | Emergency (ER) | payer BC ==
[2019-04-29 20:36] VITALS: BP 137/76
--- NOTE | 2019-04-29 20:49 | UC ---
Skin Complaint HPI - HPI Summary HPI Summary: wood sliver in left thumb---happened about 2 pm today---last tetanus about 5 years ago - History of Current Complaint Chief Complaint: UCSkin Time Seen by Provider: 04/29/19 20:42 Stated Complaint: SPLINTER Hx Obtained From: Patient Onset/Duration: Sudden Onset, Lasting Hours - 7 Skin Exposure Onset/Duration: Hours Ago - 7 Pain Intensity: 0 Location: Discrete - left thumb Character: Pain Aggravating Factor(s): Nothing Alleviating Factor(s): Nothing Associated Signs & Symptoms: Positive: Negative Related History: Foreign Body - wood splinter in left thumb - Allergy/Home Medications Allergies/Adverse Reactions: Allergies Allergy/AdvReac Type Severity Reaction Status Date / Time sodium hypochlorite solution Allergy Severe Itching Verified 04/29/19 20:36 PMH/Surg Hx/FS Hx/Imm Hx Previously Healthy: Yes - Surgical History Surgical History: Yes Surgery Procedure, Year, and Place: RIGHT ACL REPAIR 2009 [facility]. FOREIGN BODY REMOVAL RIGHT HAND AGE 14 [facility]. UMBILICAL HERNIA REPAIR 2016 [facility]. right elbow bursectomy - Family History Known Family History: Positive: None Negative: Hypertension, Diabetes - Social History Occupation: Works From/At Home Lives: With Family Alcohol Use: Daily Alcohol Amount: APPROX 1 BEER PER DAY, OR 3-5 PER WEEK Substance Use Type: None Smoking Status (MU): Never Smoked Tobacco Have You Smoked in the Last Year: No - Immunization History Most Recent Influenza Vaccination: fall 2017 Most Recent Tetanus Shot: <5 years Most Recent Pneumonia Vaccination: none Review of Systems All Other Systems Reviewed And Are Negative: Yes Constitutional: Positive: Negative Skin: Positive: Other - pw lateral left thumb with wood splinter Eyes: Positive: Negative ENT: Positive: Negative Respiratory: Positive: Negative Cardiovascular: Positive: Negative Gastrointestinal: Positive: Negative Genitourinary: Positive: Negative Motor: Positive: Negative Neurovascular: Positive: Negative Musculoskeletal: Positive: Negative Neurological: Positive: Negative Psychological: Positive: Negative Is Patient Immunocompromised?: No Physical Exam Triage Information Reviewed: Yes Appearance: Well-Appearing, No Pain Distress, Well-Nourished Vital Signs: Initial Vital Signs Temp 97.6 F 04/29/19 20:32 Pulse 63 04/29/19 20:32 Resp 16 04/29/19 20:32 BP 137/76 04/29/19 20:32 Pulse Ox 96 04/29/19 20:32 Vital Signs Reviewed: Yes Eye Exam: Normal Eyes: Positive: Conjunctiva Clear ENT Exam: Normal ENT: Positive: Normal ENT inspection, Hearing grossly normal. Negative: Trismus , Muffled voice, Hoarse voice Dental Exam: Normal Neck exam: Normal Neck: Positive: Supple, Nontender Respiratory Exam: Normal Respiratory: Positive: Chest non-tender, No respiratory distress, No accessory muscle use Cardiovascular Exam: Normal Cardiovascular: Positive: RRR, Pulses Normal, Brisk Capillary Refill Musculoskeletal Exam: Normal Musculoskeletal: Positive: Strength Intact, ROM Intact, No Edema Neurological Exam: Normal Neurological: Positive: Alert, Muscle Tone Normal Psychological Exam: Normal Skin Exam: Other Skin: Positive: Other - pw left thumb Re-Evaluation - Re-Evaluation First Eval Change: Improved - splinter removed with ease wound washed dsd applied Course/Dx - Course Course Of Treatment: mild soap and water wash, warm soak observe daily for s/s of infection and return should sx occur or follow with pcp prn - Diagnoses Provider Diagnosis: Foreign body (FB) in soft tissue Discharge ED - Sign-Out/Discharge Documenting (check all that apply): Patient Departure All imaging exams completed and their final reports reviewed: No Studies - Discharge Plan Condition: Stable Disposition: HOME Patient Education Materials: Soft Tissue Foreign Body (ED), Acute Wound Care ( ED), Warm Compress or Soak (ED) Referrals: Alina Haddad MD [Primary Care Provider] - If Needed - Billing Disposition and Condition Condition: STABLE Disposition: Home
== END 2019-04-29 20:58 | disposition home or self-care (01) ==
LOC: UCEAST 20:28
DX: S60.352A Superficial foreign body of left thumb, initial encounter (principal); W45.8XXA Other foreign body or object entering through skin, initial encounter; Y92.9 Unspecified place or not applicable; Z91.09 Other allergy status, other than to drugs and biological substances
CPT/HCPCS: 99211; G0463